=== PATIENT | female | born 1950 | race Caucasian/White ===

== ENCOUNTER 2020-05-09 18:07 | Observation (INO) ==
[2020-05-09] MEDS ORDERED: Isovue-370 500 ML BOTTLE IVP ONE (18:38)
[2020-05-09 19:07] LABS: Hematocrit 41.3 % (35.3-44.9); Mean Corpuscular HGB Conc 31.5 g/dL (31.6-35.5); Mean Corpuscular Hemoglobin 30.1 pg (28.0-33.3); Mean Corpuscular Volume 95.6 fL (83.0-100.0); Mean Platelet Volume 10.5 fL (9.4-12.4); Platelet Count 273 K/mcL (140-400); Red Blood Count 4.32 M/mcL (3.82-4.97); Red Cell Distribution Width 12.8 % (11.5-14.5); White Blood Count 7.4 K/mcL (4.3-11.1)
[2020-05-09 19:09] LABS: INR 0.9
[2020-05-09 19:12] LABS: Activated Partial Thrombo Time 29.1 Seconds (26.0-36.0)
[2020-05-09 19:26] LABS: BUN/Creatinine Ratio 20 (6-26); Blood Urea Nitrogen 17 mg/dL (8-23); Calcium 9.3 mg/dL (8.6-10.3); Carbon Dioxide 25 mEq/L (23-29); Chloride 106 mEq/L (98-107); Glucose 111 mg/dL (70-105); Osmolality,Calculated 288 (280-300); Potassium 3.9 mEq/L (3.5-5.1); Sodium 138 mEq/L (136-145); eGFR For African Americans > 60 (> 60); eGFR For Non-African Americans > 60 (> 60)
[2020-05-09 19:27] LABS: Troponin I < 0.03 ng/mL (< 0.04)
[2020-05-09 20:35] LABS: Bilirubin,Urine Negative (Negative); Blood,Urine Negative (Negative); Clarity,Urine Clear (Clear); Color,Urine Colorless (Yellow); Glucose,Urine (UA) Normal (Normal); Ketones,Urine Negative (Negative); Leukocyte Esterase,Urine Trace (Negative); Nitrite,Urine Negative (Negative); PH,Urine 6.5 pH Units (5.0-8.0); Protein,Urine Negative (Neg-Trace); RBC,Urine 0-3 per hpf (0-3); Specific Gravity,Urine > 1.030 (1.010-1.025); Squamous Epithelial Cell,Urine Few per hpf (None-Few); Urobilinogen,Urine Normal (Normal)
[2020-05-09] MEDS ORDERED: Aspirin 325 MG TABLET PO ONE (20:48)
[2020-05-09] MEDS ORDERED: Naloxone 0.4 MG/ML INJ IVP PRN (22:59)
[2020-05-10] MEDS ORDERED: traZODone 50 MG TABLET PO SCH (00:45)
[2020-05-10] MEDS ORDERED: Perflutren Lipid Microsphere 1.3 ML in 0.9 % Sodium Chloride 8.7 ML IVP PRN (00:56)
[2020-05-10] MEDS ORDERED: cefTRIAXone 1,000 MG in 0.9 % Sodium Chloride Mini Bag 100 ML IVPB ONE (00:58)
[2020-05-10] MEDS: atenoloL 50 MG TABLET PO SCH ×2 (02:07→07:50)
[2020-05-10 03:48] LABS: Hemoglobin 11.8 g/dL (11.5-15.4); Mean Corpuscular HGB Conc 32.8 g/dL (31.6-35.5); Mean Corpuscular Hemoglobin 30.5 pg (28.0-33.3); Mean Platelet Volume 10.5 fL (9.4-12.4); Platelet Count 213 K/mcL (140-400); Red Blood Count 3.87 M/mcL (3.82-4.97); Red Cell Distribution Width 12.8 % (11.5-14.5); White Blood Count 6.4 K/mcL (4.3-11.1)
[2020-05-10 03:55] LABS: Prothrombin Time 11.6 Seconds (9.4-12.1)
[2020-05-10 04:08] LABS: BUN/Creatinine Ratio 14 (6-26); Blood Urea Nitrogen 12 mg/dL (8-23); Calcium 9.3 mg/dL (8.6-10.3); Carbon Dioxide 26 mEq/L (23-29); Chloride 109 mEq/L (98-107); Glucose 129 mg/dL (70-105); Osmolality,Calculated 297 (280-300); Potassium 3.6 mEq/L (3.5-5.1); Sodium 143 mEq/L (136-145); eGFR For African Americans > 60 (> 60); eGFR For Non-African Americans > 60 (> 60)
[2020-05-10 08:09] LABS: Estimated Average Glucose 105 mg/dl; Hemoglobin A1C 5.3 %
[2020-05-10] MEDS ORDERED: Aspirin Enteric Coated 81 MG Tablet PO SCH (09:00)
[2020-05-10 12:17] LABS: Chol/HDL Ratio 2.6 (0-4.9); Cholesterol 151 mg/dL (< 200); HDL Cholesterol 57 mg/dL (40-59); LDL Cholesterol,Calculated 78 mg/dL (< 100); Triglycerides 78 mg/dL (< 150)
[2020-05-10 15:24] VITALS: BP 150/75
[2020-05-11] MEDS ORDERED: cefTRIAXone 1,000 MG in 0.9 % Sodium Chloride Mini Bag 100 ML IVP SCH (09:00)
== END 2020-05-10 18:13 | disposition home or self-care (01) ==
LOC: 3BNU 18:07 → EMEROOARM 18:07 → 3BNU 23:17
PROVIDERS: ADMIT Internal Medicine; ATTEND Internal Medicine

== ENCOUNTER 2020-05-18 06:06 | Inpatient (IN) ==
[2020-05-18] MEDS ORDERED: CeFAZolin Syr 2,000MG/20 ML 2,000 MG/20 ML SYRINGE IVPB ONE (06:27)
[2020-05-18] MEDS ORDERED: Ringers Solution, Lactated 1,000 ML IVC SCH ×2 (06:30→07:15)
[2020-05-18] MEDS ORDERED: Heparin 1,000 UNITS/500 mL 500 ML ONE ×2 (06:59→07:08)
[2020-05-18] MEDS ORDERED: Ondansetron 4 MG/2 ML VIAL IVP PRN ×3 (07:01→12:48)
[2020-05-18] MEDS ORDERED: *HR* Propofol 200 MG/20 ML VIAL IVP ONE (07:01)
[2020-05-18] MEDS ORDERED: *HR* HYDROmorphone PF 0.5 MG/0.5 ML SYRINGE IVP PRN (07:01)
[2020-05-18] MEDS ORDERED: Ondansetron 4 MG/2 ML VIAL ONE (07:01)
[2020-05-18] MEDS ORDERED: *HR* Rocuronium Bromide 50 MG/5 ML VIAL ONE (07:01)
[2020-05-18] MEDS ORDERED: Lidocaine HCL 4 ML Topical Solution (Laryng-O-Jet Kit Sterile Pak) TP ONE (07:01)
[2020-05-18] MEDS ORDERED: Lidocaine -MPF 2% 2 ML VIAL ONE (07:01)
[2020-05-18] MEDS ORDERED: *HR* OxyCODONE Immed Rel 5 MG TABLET PO PRN ×3 (07:01→12:48)
[2020-05-18] MEDS ORDERED: *HR* Succinylcholine 200 MG/10 ML VIAL IVP ONE (07:01)
[2020-05-18] MEDS ORDERED: *HR* FentaNYL (PF) 100 MCG/2 ML VIAL ONE ×2 (07:01→08:52)
[2020-05-18] MEDS ORDERED: Bupivacaine-MPF 0.25% 10 ML VIAL ONE (07:08)
[2020-05-18] MEDS ORDERED: *HR* Heparin 5,000 UNIT/ML VIAL ONE (07:08)
[2020-05-18] MEDS ORDERED: Lidocaine 1% 20 ML MDV ONE (07:08)
[2020-05-18] MEDS ORDERED: Protamine Sulfate 50 MG/5 ML VIAL IVP ONE (07:08)
[2020-05-18] MEDS ORDERED: NiCARdipine 2.5 MG/10 ML Syringe IVPB ONE (07:20)
[2020-05-18] MEDS ORDERED: Vancomycin 1,000 MG, Sodium Chloride IRRigation 1,000 ML IR ONE (07:45)
[2020-05-18] MEDS ORDERED: Sugammadex Sodium 200 MG/2 ML VIAL IV ONE (10:07)
[2020-05-18] MEDS ORDERED: Naloxone 0.4 MG/ML INJ IVP PRN ×2 (12:35→12:48)
[2020-05-18] MEDS ORDERED: *HR* HYDROcodone/Acet 5/325 mg TABLET PO PRN (12:35)
[2020-05-18] MEDS ORDERED: Acetaminophen 325 MG TABLET PO PRN ×2 (12:35→12:48)
[2020-05-18] MEDS ORDERED: *HR* Labetalol 20 MG/4 ML SYRINGE IVP PRN ×2 (12:40→12:48)
[2020-05-18] MEDS ORDERED: 0.9 % Sodium Chloride 1,000 ML IVC SCH (12:45)
[2020-05-18] MEDS ORDERED: 0.9 % Sodium Chloride 500 ML IVC SCH (12:48)
[2020-05-18] MEDS ORDERED: CeFAZolin Syr 3,000MG/30 ML 3,000 MG/30 ML SYRINGE IVPB SCH (16:00)
[2020-05-18] MEDS: CeFAZolin 2 GM/120 ML BAG IVPB SCH ×2 (16:03→22:40)
[2020-05-18] MEDS: *HR* Metoprolol 5 MG/5 ML VIAL IVP SCH ×2 (16:04→22:40)
[2020-05-18] MEDS: *HR* HYDROcodone/Acet 5/325 mg TABLET PO PRN ×2 (16:13→22:43)
[2020-05-18] MEDS ORDERED: *HR* Metoprolol 5 MG/5 ML VIAL IVP SCH (18:00)
[2020-05-18] MEDS ORDERED: traZODone 50 MG TABLET PO SCH (21:00)
[2020-05-19] MEDS: *HR* Metoprolol 5 MG/5 ML VIAL IVP SCH (04:35)
[2020-05-19] MEDS: *HR* HYDROcodone/Acet 5/325 mg TABLET PO PRN (04:36)
[2020-05-19] MEDS ORDERED: *HR* Heparin 5,000 UNIT/ML VIAL SQ SCH ×2 (06:00)
[2020-05-19 07:23] VITALS: BP 134/76
[2020-05-19] MEDS ORDERED: atenoloL 50 MG TABLET PO SCH (09:00)
[2020-05-19] MEDS ORDERED: Aspirin Enteric Coated 81 MG Tablet PO SCH (09:00)
== END 2020-05-19 11:10 | disposition home or self-care (01) | DRG 39 ==
LOC: SAMDAY 06:06 → 2NNU 07:43
PROVIDERS: ADMIT Surgery; ATTEND Surgery